=== PATIENT | female | born 1990 | race Caucasian/White ===

== ENCOUNTER 2023-07-30 13:09 | Emergency (ER) | payer MEDICAID ==
[~2023-07-30] VITALS: Ht 167.6 cm; Wt 81.6 kg
[2023-07-30 13:13] VITALS: BP_SYST 117; PULSE 75; O2SAT 97
[2023-07-30 13:41] LABS: BASOPHILS # (AUTO) 0.1 K/uL (0.0-0.2); BASOPHILS % (AUTO) 0.6 % (0.0-2.0); EOSINOPHILS # (AUTO) 0.3 K/uL (0.0-0.4); EOSINOPHILS % (AUTO) 3.1 % (0.0-4.0); LYMPHOCYTES % (AUTO) 29.8 % (20.5-51.5); MEAN CORPUSCULAR HEMOGLOBIN 28 pg (27-31); MEAN CORPUSCULAR HGB CONC 33 % (32-36); MEAN CORPUSCULAR VOLUME 85 fL (79.0-98.0); MONOCYTES # (AUTO) 0.5 K/uL (0.0-1.0); MONOCYTES % (AUTO) 5.2 % (1.7-9.3); NEUTROPHILS # (AUTO) 6.1 K/uL (1.8-7.7); NEUTROPHILS % (AUTO) 61.3 % (40.0-70.0); PLATELET COUNT (AUTO) 317 K/uL (130-430); RED CELL DISTRIBUTION WIDTH 13.5 % (9.0-15.0); WHITE BLOOD COUNT (AUTO) 9.9 K/uL (4.8-10.8)
[2023-07-30 14:07] LABS: BILIRUBIN,URINE NEGATIVE (NEGATIVE); CLARITY/URINE Clear (CLEAR); COLOR,URINE YELLOW (YELLOW); GLUCOSE,URINE NEGATIVE (NEGATIVE); KETONES,URINE NEGATIVE (NEGATIVE); NITRITE, URINE NEGATIVE (NEGATIVE); PROTEIN URINE NEGATIVE (NEGATIVE); UROBILINOGEN,URINE 0.2 (0.2-1.0)
[2023-07-30 14:09] LABS: ANION GAP 8 (5-15); CALCIUM 8.3 mg/dL (8.4-11.0); CARBON DIOXIDE 27 mmol/L (23-29); CHLORIDE 102 mmol/L (98-107); GFR AFRICAN AMERICAN 122 mL/min (>90); GLUCOSE 94 mg/dL (74-106); POTASSIUM 3.8 mmol/L (3.5-5.1); SODIUM SERUM 137 mmol/L (136-145); UREA NITROGEN, BLOOD 9 mg/dL (8-21)
[2023-07-30 14:12] LABS: GFR NON AFRICAN-AMERICAN 101 mL/min (>90)
[2023-07-30] MEDS ORDERED: ONDANSETRON 4 MG ODT TAB PO ONE (14:15)
[2023-07-30] MEDS ORDERED: OMEPRAZOLE Non-Formulary 20 MG CAPSULE.DR PO ONE (14:15)
[2023-07-30 14:23] LABS: ALANINE AMINOTRANSFERASE 13 U/L (12-78); AMYLASE 18 U/L (0-100); ASPARTATE AMINOTRANSFERASE 7 U/L (10-37); LIPASE 48 U/L (73-393); TOTAL BILIRUBIN 0.5 mg/dL (0.0-1.0); TOTAL PROTEIN, SERUM 6.8 g/dL (6.4-8.3)
[2023-07-30 14:23] LABS: BLOOD, URINE TRACE (NEGATIVE)
[2023-07-30 14:24] LABS: LEUKOCYTE ESTERASE ,URINE 1+ (NEGATIVE)
[2023-07-30 14:25] LABS: BACTERIA,URINE FEW /HPF (None Seen); RBC,URINE 0-3 /HPF (0-3)
[2023-07-30 14:26] LABS: MUCUS,URINE 1+ /LPF (None Seen)
[2023-07-30 14:26] LABS: SERUM HCG (QUALITATIVE) NEGATIVE (NEGATIVE)
[2023-07-30] MEDS ORDERED: PANTOPRAZOLE SODIUM 40 MG TAB PO ONE (14:45)
[2023-07-30] MEDS ORDERED: NACL 0.9% 1,000 ML IV ONE (15:00)
[2023-07-30] MEDS ORDERED: DEXAMETHASONE SOD PHOSPHATE 10 MG/ML VIAL IM ONE (15:15)
[2023-07-30] MEDS ORDERED: LIDOCAINE VISCOUS 2%, 15 ML UDC MM ONE (15:15)
[2023-07-30] MEDS ORDERED: DICYCLOMINE HCL 10 MG/5 ML SOLUTION PO ONE (15:15)
[2023-07-30] MEDS ORDERED: SULFAMETHOXAZOLE/TRIMETHOPR DS 1 TABLET PO ONE (15:15)
[2023-07-30] MEDS ORDERED: SULF1TAB48 PO (15:17)
[2023-07-30] MEDS ORDERED: ONDA-8 TL (15:17)
[2023-07-30] MEDS ORDERED: DIPH28.34 TP (15:17)
[2023-07-30] MEDS ORDERED: OMEP40CA20 PO (15:17)
[2023-07-30 15:33] VITALS: BP_SYST 117; PULSE 75; TEMP 97.6; O2SAT 97
== END 2023-07-30 15:31 | disposition home or self-care (01) ==
LOC: SED 13:09
DX: S40.862A Insect bite (nonvenomous) of left upper arm, initial encounter (principal); S40.861A Insect bite (nonvenomous) of right upper arm, initial encounter; S80.862A Insect bite (nonvenomous), left lower leg, initial encounter; S80.861A Insect bite (nonvenomous), right lower leg, initial encounter; N39.0 Urinary tract infection, site not specified; K20.90 Esophagitis, unspecified without bleeding; K21.9 Gastro-esophageal reflux disease without esophagitis; Z79.899 Other long term (current) drug therapy; W57.XXXA Bitten or stung by nonvenomous insect and other nonvenomous arthropods, initial encounter; Y93.89 Activity, other specified; Y92.89 Other specified places as the place of occurrence of the external cause; Y99.8 Other external cause status
CPT/HCPCS: 99285; 74176; 80053; 81000; 82150; 84703; 83690; 85025; 87086; 84484; 36415; 93005; 76376; 96372; 83605; 82397; Q0162; J2001; J1100